=== PATIENT | male | born 1945 | race Caucasian/White ===

== ENCOUNTER 2017-08-01 05:21 | Inpatient (IN) | payer OTHER ==
[2017-07-23 13:16] LABS: HEMOGLOBIN 15.2 gm/dL (14.0-18.0); MCH 32.1 pg (26.0-34.0); MCHC 33.8 g/dL (28.0-37.0); RBC 4.73 mil/uL (4.50-6.00); RDW 14.1 % (10.5-14.5); WBC 7.5 thou/uL (4.0-11.0)
[2017-07-23 13:19] LABS: URINE BILIRUBIN NEGATIVE (Negative); URINE BLOOD NEGATIVE (Negative); URINE CLARITY CLEAR; URINE COLOR YELLOW; URINE GLUCOSE-RANDOM* NEGATIVE (Negative); URINE KETONES NEGATIVE (Negative); URINE LEUKOCYTES-REFLEX NEGATIVE (Negative); URINE NITRITE-REFLEX NEGATIVE (Negative); URINE PROTEIN (DIPSTICK) NEGATIVE (Negative); URINE SPECIFIC GRAVITY 1.015 (1.005-1.035); URINE UROBILINOGEN 0.2 E.U./dl (0.2-1.0)
[2017-07-23 13:29] LABS: INR 1.2; PROTIME 12.7 Seconds (9.3-11.4)
[2017-07-23 13:31] LABS: CALCIUM 9.2 mg/dL (8.5-10.1); CREATININE 0.7 mg/dL (0.7-1.3); POTASSIUM 4.3 mmol/L (3.5-5.1)
[~2017-08-01] VITALS: Ht 170.2 cm; Wt 87.1 kg
--- NOTE | ~2017-08-01 | O ---
[facility] [place] [address] OPERATIVE REPORT Name: ALVIN MCCORMICK Room #: 407-P ADM IN M.R.#: [id number] Admission: 08/01/17 Attend Phys: Schuyler Jin Discharge: Date of : 43 Report #: [id number] THIS REPORT FOR: //name// CC: Schuyler SPEARS DATE OF SERVICE: 08/01/2017 PREOPERATIVE DIAGNOSES: Left shoulder pain, osteoarthritis, biceps tendinopathy. POSTOPERATIVE DIAGNOSES: Left shoulder osteoarthritis with posterior glenoid bone loss, biceps tendinopathy and partial thickness tearing. PROCEDURE PERFORMED: Left total shoulder arthroplasty with augmented glenoid, open biceps tenodesis. SURGEON: Schuyler Brar MD. LABORATORY SECRETARY: Tiffany Soria PA-C. ANESTHESIA: General with preoperative interscalene block, ultrasound-guided. FLUIDS: 800 mL crystalloid. ESTIMATED BLOOD LOSS: Approximately 50 mL. IMPLANTS UTILIZED: DePuy Global Unite size 12 stem with 135 degree size 12 proximal body, 52 x 18 eccentric humeral head and a 48+3 Step-Tech glenoid. DESCRIPTION OF PROCEDURE: After proper identification of the patient and operative site in preoperative holding area, the operative site was signed by myself. Prophylactic antibiotic was given. The patient elected to receive an interscalene block after reviewing the risks, benefits, alternatives and complications with Anesthesia. After induction of satisfactory general endotracheal anesthesia, the patient was carefully positioned in the beach chair position with head of bed elevated approximately 40 degrees. Great care was taken to position the patient. A [employer] limb positioning system was utilized throughout the entire procedure. Anterior deltopectoral approach was planned. The left shoulder was sterilely prepped and draped in the usual manner. Final skin draping was with an Ioban drape. Qualified fiscal assistant utilized throughout the entire procedure to aid in patient limb positioning, visualization and retraction of the soft tissues, instrument passage, closure and sling application. [facility] [address] [place] [address] OPERATIVE REPORT Name: ALVIN MCCORMICK Room #: 407-P ADM IN M.R.#: [id number] Admission: 08/01/17 Attend Phys: Schuyler Jin Discharge: Date of : 43 Report #: [id number] Skin was incised sharply. Full thickness skin flaps were developed. Cephalic vein was identified and retracted medially as it seemed to better mobilize and less traction. Subdeltoid space was carefully developed. Biceps tendinopathy and swelling within the biceps tendon sheath was noted. Biceps tendon was tenodesed to the undersurface of the pectoralis major with #2 FiberWire. Free end of the stump was then followed proximally. Bicipital groove was opened as well as the rotator interval. A lesser tuberosity osteotomy was performed after the circumflex vessels were identified and ligated. Anterior capsule was then carefully released off the glenoid neck. Traction stitch was applied to the subscapularis. A good quality tendon as well as osteotomy piece of the lesser tuberosity were noted. Large amount of spurring about the anterior inferior humeral head was present. Complete loss of bone was noted on both sides of the joint. Humeral head was delivered out of the wound and using a 135 degree cutting guide, humeral head osteotomy was performed in approximately 20 degrees of retroversion. Rotator cuff was protected. Humeral head osteotomy was performed. Peripheral osteophytes were carefully removed. The canal was then prepared with hand reaming up to a size 12, which matched the preoperative templating. Bella bartholomewter proximal broach and then a trial stem was implanted. Protection plate was threaded on to this and attention was divided to the glenoid side of the joint. Anterior capsule was thickened. This was divided off the subscapularis bluntly with a right angle. It was carefully released. Great care was taken to identify and protect the axillary nerve throughout the entire procedure. Remaining biceps tendon and labrum was circumferentially released. Posterior glenoid bone loss was noted, which was also identified on his preoperative x-rays and CT scan. After the soft tissue had been carefully removed and there was excellent glenoid exposure, a 48+3 sizing disk provided the best fit. Guide pin was inserted. It was felt to be in good position both visually as well as by palpation. Glenoid face was reamed to approximately the 50 yard line and there appeared to be enough posterior glenoid bone loss that the patient would benefit from augmenting and I did not want to take that additional bone anteriorly, and therefore we prepared for the Step-Tech glenoid. Central drill PEG was reamed. The Step-Tech burring guide was carefully positioned and secured with half pins. Next, the oscillating reamer was used to carefully ream the Step-Tech portion of the glenoid. Any peripheral soft tissue was carefully removed. There was a large posterior glenoid osteophyte that was removed during the preparation of the glenoid. After the glenoid had been satisfactorily prepared with a nicely prepared step portion, the guides were removed. The sizing disk was placed. There was good fluid fill and there appeared to be no pistoning or rocking of the implant over the glenoid. At this point, wound was thoroughly irrigated with normal saline. The peripheral peg guide was carefully impacted into position. Anterior inferior peg was drilled first. Derotation pin was placed in the posterior inferior and then finally the superior PEG. These were removed. Joint was thoroughly irrigated with antibiotic irrigant. Trial prosthesis was placed, 48+3. It was fully seated, had good position as well as fixation and overall stability. This was removed. Joint was irrigated. FloSeal was utilized within the drill holes while the 48+[address] [address] OPERATIVE REPORT Name: ALVIN MCCORMICK Room #: 407-P ADM IN M.R.#: [id number] Admission: 08/01/17 Attend Phys: Schuyler Jin Discharge: Date of : 43 Report #: [id number] Step-Tech glenoid was bone grafted and the bone cement was prepared. The FloSeal was irrigated out. This was then suctioned. Peripheral pegs were injected with cement from a Tuohy syringe. Any excess bone cement was carefully removed. The glenoid was then carefully impacted into position and was fully seated. It was held in position until the cement had cured. Next, the glenoid was then protected with a plastic dura. The humerus was then reevaluated. A 52 x 18 eccentric head provided the best overall fit and recreation of the proximal humeral anatomy that had approximately 50% translation when reduced and good push back. Next, trial implants were removed. Drill holes were placed in the anterior cortex of the humerus, where 4 #2 FiberWires were positioned, and prior to this the osteotome for the Global Unite prosthesis had been carefully impacted. The stem was assembled on the back table. It was impacted into position. The inferior 2 sutures were placed around the prosthesis. The prosthesis was fully seated. A 52 x 18 eccentric head was positioned and impacted into position. It was well seated. Next, the shoulder was reduced and the subscapularis was repaired with modified Sukumar-Yobany technique. Lateral portion of the rotator interval was prepared with #2 FiberWire. Joint was thoroughly irrigated with normal saline. Prior to closure, 1 gram vancomycin powder was utilized deep, half of this within the deep versus the subcutaneous tissues. Deltopectoral interval was closed with 0 Vicryl, 2-0 Vicryl for subcutaneous tissues, followed by a running Monocryl stitch placed subcutaneously and Dermabond was then used to seal the incision. Sterile dressing was applied. The patient will be placed in a sling and abduction pillow for 4 weeks postoperatively. <ELECTRONICALLY SIGNED> By: Schuyler Brar MD 08/03/17 1017 [id number] Schuyler Brar MD /nt
--- NOTE | ~2017-08-01 | HC ---
[facility] [place] [address] CONSULTATION Name: ALVIN MCCORMICK Room #: 407-P ADM IN M.R.#: [id number] Admission: 08/01/17 Attend Phys: Schuyler Jin Discharge: Date of : 43 Report #: [id number] THIS REPORT FOR: //name// CC: Schuyler SPEARS DATE OF SERVICE: 08/01/2017 INTERNAL MEDICINE CONSULTATION NOTE The patient was seen for consultation on August 01. REQUESTING PHYSICIAN: Schuyler Brar MD REASON FOR CONSULTATION: Medical management. HISTORY OF PRESENT ILLNESS: The patient is a 72-year-old man with history of arthritis, who had left shoulder surgery earlier today. The patient is recovering well, and currently he is pain free. He has been hemodynamically stable during the postop period. The patient has history of coronary artery disease, and he had coronary artery bypass grafting surgery in 2000. He is followed closely by rehab tech. He also has atrial fibrillation, and he is on Xarelto for anticoagulation. He considers his heart condition is stable. In fact, he is active physically. He denies chest pains, shortness of breath, or other symptoms. PAST MEDICAL HISTORY: 1. Coronary artery disease, status post CABG in 2000. 2. Hypertension. 3. Dyslipidemia. 4. Atrial fibrillation. 5. Degenerative joint disease, status post left knee replacement surgery few years ago. OUTPATIENT MEDICATIONS: Amlodipine, Lipitor, metoprolol, naproxen, quinapril, and Xarelto. FAMILY HISTORY: Reviewed and not pertinent to the patient's current condition. SOCIAL HISTORY: The patient does not smoke cigarettes and does not drink alcohol. REVIEW OF SYSTEMS: As above in HPI section, all others negative. PHYSICAL EXAMINATION: [facility] [address] [place] [address] CONSULTATION Name: ALVIN MCCORMICK Room #: 407-P [facility] IN M.R.#: [id number] Admission: 08/01/17 Attend Phys: Schuyler Jin Discharge: Date of : 43 Report #: [id number] GENERAL: The patient is an elderly man who looks younger than his actual age. He is alert and oriented x 3. VITAL SIGNS: Blood pressure is 144/78, heart rate is 69, respiration is 17, temperature is 98.1. HEENT: Pupils are equal. Eye movements are normal. Sclerae are anicteric. NECK: Supple. The patient has no JVD. CARDIOVASCULAR: The patient has irregularly irregular heart rate. He has no murmurs, gallops or rubs. RESPIRATORY: Chest moves symmetrically with breathing. LUNGS: Clear to auscultation bilaterally. He has no wheezes or crackles. GASTROINTESTINAL: Abdomen is soft, nondistended and nontender. Bowel sounds are present. Hepatomegaly or splenomegaly is not palpated. MUSCULOSKELETAL: The patient has no edema, cyanosis or clubbing. Left shoulder is immobilized. He has no obvious joint deformities. NEUROLOGIC: The patient is alert and oriented x 3. His examination is nonfocal. SKIN: No skin lesions. Skin is dry and warm. LABORATORY DATA: From 07/23/2017, basic metabolic profile is normal. CBC was also normal. IMPRESSION: 1. Degenerative joint disease, status post left shoulder surgery earlier today. 2. Coronary artery disease, status post coronary artery bypass graft in 2000, no chest pain. 3. Atrial fibrillation, rate controlled. 4. Hypertension. 5. Dyslipidemia. PLAN: The patient will be continued on postop care per orthopedic surgeons. As noted, the patient is hemodynamically stable, and he is recovering well. Home medications will be resumed, and the patient's condition will be monitored closely. We will continue to follow the patient during the hospitalization. Once again, we appreciate the opportunity of participating in the care of your patients. <ELECTRONICALLY SIGNED> By: Fei Veronica MD 08/02/17 1604 [id number] Fie Veronica MD /nt
[~2017-08-01 05:21] MED LIST: ACCUPRIL40 MG PO; ALEVE220 M1 PO; ALEVE220 MG PO; AMLODIPINE BESY10 MG PO; ASPIRIN EC325 MG PO; COLACE100 MG PO; LIPITOR40 MG PO; METOPROLOL SUC100 MG PO; MULTIVITAMINS1 EAC7 PO; NORCO 5-325 TA1 EACH PO; TYLENOL325 MG PO; XARELTO10 MG PO; XARELTO20 MG PO
[2017-08-01 07:00] VITALS: BP 149/78
[2017-08-01 07:40] LABS: INR 1.1; PROTIME 11.3 Seconds (9.3-11.4)
[2017-08-01 11:54] VITALS: BP 143/83
[2017-08-01 19:56] VITALS: BP 140/80
[2017-08-01 23:56] VITALS: BP 140/67
[2017-08-02 04:00] VITALS: BP 148/83
[2017-08-02 04:48] LABS: ABSOLUTE NEUTROPHILS 8.7 thou/uL (1.4-8.2); HEMATOCRIT 39.2 % (42.0-52.0); HEMOGLOBIN 13.2 gm/dL (14.0-18.0); LYMPHOCYTES 11.9 % (24.0-44.0); MCH 32.1 pg (26.0-34.0); MCHC 33.7 g/dL (28.0-37.0); MCV 95.3 fL (80.0-100.0); MONOCYTES 11.7 % (1.0-8.0); PLATELET COUNT 210 thou/uL (150-400); POLYS 76.4 % (36.0-66.0); RBC 4.11 mil/uL (4.50-6.00); WBC 11.4 thou/uL (4.0-11.0)
[2017-08-02 04:54] LABS: CALCIUM 8.4 mg/dL (8.5-10.1); CREATININE 0.9 mg/dL (0.7-1.3); POTASSIUM 4.4 mmol/L (3.5-5.1)
[2017-08-02 08:24] VITALS: BP 147/75
[2017-08-02 16:21] VITALS: BP 122/68
[2017-08-02 20:00] VITALS: BP 133/60
[2017-08-03 04:00] VITALS: BP 150/79
[2017-08-03 07:29] VITALS: BP 154/84
[2017-08-03 13:27] VITALS: BP 154/88
[2018-02-21] MEDS ORDERED: MULTI VITAMIN1 EACH PO (09:14)
[2018-03-08] MEDS ORDERED: FLOMAX0.4 MG PO (13:51)
[2018-03-08] MEDS ORDERED: MIRALAX17 GM PO (13:51)
[2018-03-08] MEDS ORDERED: SENNA8.6 MG PO (13:51)
[2018-03-08] MEDS ORDERED: COLACE100 MG PO (13:51)
== END 2017-08-03 13:50 | disposition home or self-care (01) | DRG 483 ==
LOC: TBA 05:21 → 4N 05:21 → PRE 05:37 → 4N 15:27 → ENTRNSPT 08-03 13:38 → EDTRNSPTSTS 08-03 13:41 → 4N 08-03 13:50
PROVIDERS: Anesthesiology; Orthopaedic Surgery Sports Medicine; Physician Assistant Surgical
PROC: 0LS40ZZ Reposition Left Upper Arm Tendon, Open Approach (ICD-10-PCS; principal; 2017-08-01)
PROC: 0RRK0JZ Replacement of Left Shoulder Joint with Synthetic Substitute, Open Approach (ICD-10-PCS; principal; 2017-08-01)
DX: M19.012 Primary osteoarthritis, left shoulder (principal); I48.91 Unspecified atrial fibrillation; I10 Essential (primary) hypertension; I25.10 Atherosclerotic heart disease of native coronary artery without angina pectoris; E78.5 Hyperlipidemia, unspecified; Z95.1 Presence of aortocoronary bypass graft
CPT/HCPCS: 10790; 50010; 50101; 50172; 50386; 50417; 50697; 50733; 50935; 51751; 51771; 52138; 53000; 53078; 54118; 55435; 56521; 56524; 56525; 56526; 56530; 57095; 62110; 62900; 64042; 64043; 70005

== ENCOUNTER → 2018-01-28 | Outpatient (CLI) | payer OTHER | LOC: CAT 09:35 | DX: M19.011 Primary osteoarthritis, right shoulder (principal); M75.21 Bicipital tendinitis, right shoulder; M25.711 Osteophyte, right shoulder; M25.411 Effusion, right shoulder; R91.1 Solitary pulmonary nodule; I10 Essential (primary) hypertension; I25.10 Atherosclerotic heart disease of native coronary artery without angina pectoris; E78.5 Hyperlipidemia, unspecified; I48.91 Unspecified atrial fibrillation ==

== ENCOUNTER → 2019-12-05 | Outpatient (CLI) | payer OTHER ==
[~2019-12-05] MED LIST changes: +FLOMAX0.4 MG PO; +MIRALAX17 GM PO; +MULTI VITAMIN1 EACH PO; +SENNA8.6 MG PO
== END ==
LOC: SJCVC 12:47
PROVIDERS: ATTEND Internal Medicine
DX: I48.21 Permanent atrial fibrillation (principal); R94.31 Abnormal electrocardiogram [ECG] [EKG]; I25.810 Atherosclerosis of coronary artery bypass graft(s) without angina pectoris; I10 Essential (primary) hypertension; I65.23 Occlusion and stenosis of bilateral carotid arteries; E78.5 Hyperlipidemia, unspecified; E78.00 Pure hypercholesterolemia, unspecified; G47.33 Obstructive sleep apnea (adult) (pediatric); Z95.1 Presence of aortocoronary bypass graft; Z79.899 Other long term (current) drug therapy; Z82.49 Family history of ischemic heart disease and other diseases of the circulatory system; Z87.891 Personal history of nicotine dependence